=== PATIENT | female | born 1980 | race African-American/Black ===

== ENCOUNTER 2019-09-28 05:29 | Inpatient (IN) | payer OTHER, MEDICAID ==
[2019-09-26 13:58] LABS: BASOPHILS # (AUTO) 0.04 x10^3/uL (0-0.1); BASOPHILS % (AUTO) 1 % (0-1); EOSINOPHILS # (AUTO) 0.11 x10^3/uL (0-0.4); EOSINOPHILS % (AUTO) 2 % (1-7); LYMPHOCYTES # (AUTO) 1.64 x10^3/uL (1-3.4); LYMPHOCYTES % (AUTO) 22 % (22-44); MD NO; MEAN CORPUSCULAR HGB CONC 33.3 g/dL (32.4-35.8); MEAN CORPUSCULAR VOLUME 93.1 fL (80-100); MEAN PLATELET VOLUME 7.8 fL (7.4-10.4); MONOCYTES # (AUTO) 0.35 x10^3/uL (0.2-0.8); MONOCYTES % (AUTO) 5 % (2-9); NEUTROPHILS # (AUTO) 5.49 x10^3/uL (1.8-6.8); NEUTROPHILS % (AUTO) 72 % (42-75); PLATELET COUNT 367 x10^3/uL (130-400); RED BLOOD COUNT 4.45 x10^6/uL (3.82-5.3); RED CELL DISTRIBUTION WIDTH 13.3 % (9.6-15.2)
[2019-09-26 14:08] LABS: ALANINE AMINOTRANSFERASE 28 U/L (12-78); ALBUMIN 3.3 g/dL (3.4-5.0); ANION GAP 5 mmol/L (5-15); CALCIUM 9.1 mg/dL (8.5-10.1); CHLORIDE 103 mmol/L (98-107); CREATININE 0.92 mg/dL (0.55-1.02)
[2019-09-26 14:12] LABS: ALKALINE PHOSPHATASE 58 U/L (45-117); BILIRUBIN,TOTAL 0.2 mg/dL (0.2-1.0); TOTAL PROTEIN 8.2 g/dL (6.4-8.2)
[~2019-09-28] VITALS: Ht 162.6 cm; Wt 78.0 kg
[~2019-09-28 05:29] MED LIST: HYDR-3240 PO; LANS30CA PO
[2019-09-28] MEDS ORDERED: LACTATED RINGERS 1,000 ML IV SCH (06:01)
[2019-09-28 06:07] VITALS: BP 129/87
[2019-09-28 06:31] LABS: HCG UR SG 1.028 (1.003-1.030)
[2019-09-28] MEDS ORDERED: MIDAZOLAM 1 MG/ML, 2ML ONE (06:42)
[2019-09-28] MEDS ORDERED: FENTANYL PF 250 MCG/5ML ONE (06:42)
[2019-09-28] MEDS ORDERED: CHLORHEXIDINE 15 ML UDC MM STA (06:43)
[2019-09-28] MEDS ORDERED: KETOROLAC 30 MG/1 ML ONE (06:44)
[2019-09-28] MEDS ORDERED: PHENYLEPHRINE 10 MG/ML ONE (06:49)
[2019-09-28] MEDS ORDERED: DEXAMETHASONE 4 MG/ML, 1ML ONE (06:50)
[2019-09-28] MEDS ORDERED: GLYCOPYRROLATE 0.2MG/1ML, 5ML ONE (06:50)
[2019-09-28] MEDS ORDERED: CEFAZOLIN 1,000 MG ONE (06:50)
[2019-09-28] MEDS ORDERED: PROPOFOL 10 MG/ML, 20ML ONE (06:50)
[2019-09-28] MEDS ORDERED: NEOSTIGMINE 1 MG/ML, 10ML ONE (06:51)
[2019-09-28] MEDS ORDERED: ONDANSETRON 2MG/ML, 2ML ONE (06:51)
[2019-09-28] MEDS ORDERED: ROCURONIUM 10MG/ML,5ML ONE (06:51)
[2019-09-28] MEDS ORDERED: GABAPENTIN 300 MG CAPSULE PO ONE (07:00)
[2019-09-28] MEDS ORDERED: SCOPOLAMINE 1MG PATCH TD SCH (07:00)
[2019-09-28] MEDS ORDERED: ACETAMINOPHEN 500 MG TABLET PO ONE (07:00)
[2019-09-28] MEDS ORDERED: LABETALOL 5MG/ML, 20ML IV PRN (07:30)
[2019-09-28] MEDS ORDERED: MORPHINE SULFATE 4 MG/ML, 1ML IVPush PRN (07:30)
[2019-09-28] MEDS ORDERED: OXYcodone 5 MG/5 ML ORAL.SOL UDC PO PRN (07:30)
[2019-09-28] MEDS ORDERED: HALOPERIDOL 5 MG/ML IV PRN (07:30)
[2019-09-28] MEDS ORDERED: hydrALAzine 20 MG/ML, 1ML IV PRN (07:30)
[2019-09-28] MEDS ORDERED: PROMETHAZINE 25 MG/ML, 1ML IV PRN (07:30)
[2019-09-28] MEDS ORDERED: ACETAMINOPHEN 325 MG TABLET PO PRN ×2 (07:30→12:00)
[2019-09-28] MEDS ORDERED: MEPERIDINE/PF 25MG/ML,1ML IVPush PRN (07:30)
[2019-09-28] MEDS ORDERED: ROPIvacaine/PF 0.2%, 20 ML ONE ×2 (08:02)
[2019-09-28] MEDS ORDERED: FENTANYL PF 100 MCG/2ML ONE (09:30)
[2019-09-28] MEDS ORDERED: HYDROmorphone 1 MG/ML, 1ML INJ ONE (09:31)
[2019-09-28] MEDS: FENTANYL PF 100 MCG/2ML IV PRN ×2 (09:33→09:46)
[2019-09-28] MEDS: HYDROmorphone 2 MG/ML, 1ML IVPush PRN ×2 (09:44→09:53)
[2019-09-28] MEDS ORDERED: OXYcodone 5 MG/5 ML ORAL.SOL UDC ONE (09:51)
[2019-09-28] MEDS ORDERED: MEPERIDINE/PF 25MG/ML,1ML ONE (10:08)
[2019-09-28] MEDS ORDERED: morphine SULFATE 10 MG/ML, 1ML IV PRN (12:00)
[2019-09-28] MEDS ORDERED: ACETAMINOPHEN 650 MG SUPP PR PRN (12:00)
[2019-09-28] MEDS ORDERED: PANTOPRAZOLE 40MG TABLET PO PRN (12:00)
[2019-09-28 12:29] VITALS: BP 145/92
[2019-09-28] MEDS: LACTATED RINGERS 1,000 ML IV SCH ×2 (13:27→18:40)
[2019-09-28] MEDS: OXYcodone/APAP 5/325MG TABLET PO PRN ×3 (14:08→22:07)
[2019-09-28] MEDS ORDERED: KETOROLAC 30 MG/1 ML IV PRN (15:00)
[2019-09-28] MEDS: SIMETHICONE 80 MG CHEW TAB PO SCH ×2 (16:39→20:20)
[2019-09-28 20:00] VITALS: BP 105/67
[2019-09-28] MEDS: DOCUSATE 100 MG CAPSULE PO SCH (20:20)
[2019-09-28] MEDS: SODIUM CHLORIDE FLUSH 10ML SYR IVF SCH (20:23)
[2019-09-29 00:29] VITALS: BP 110/69
[2019-09-29] MEDS: LACTATED RINGERS 1,000 ML IV SCH ×4 (01:35→20:07)
[2019-09-29] MEDS: OXYcodone/APAP 5/325MG TABLET PO PRN ×4 (01:56→15:21)
[2019-09-29 04:56] VITALS: BP 112/71
[2019-09-29 06:40] VITALS: BP 151/96
[2019-09-29] MEDS: SODIUM CHLORIDE FLUSH 10ML SYR IVF SCH ×2 (08:11→20:04)
[2019-09-29] MEDS: SIMETHICONE 80 MG CHEW TAB PO SCH ×3 (08:11→23:12)
[2019-09-29] MEDS: DOCUSATE 100 MG CAPSULE PO SCH ×2 (08:11→20:03)
[2019-09-29 08:16] VITALS: BP 126/78
[2019-09-29 13:04] VITALS: BP 146/95
[2019-09-29] MEDS: KETOROLAC 30 MG/1 ML IV SCH ×3 (15:21→23:00)
[2019-09-29 19:11] VITALS: BP 122/81
[2019-09-30] MEDS: OXYcodone/APAP 5/325MG TABLET PO PRN (00:29)
[2019-09-30 00:31] VITALS: BP 143/94
[2019-09-30] MEDS: LACTATED RINGERS 1,000 ML IV SCH ×2 (04:00→10:40)
[2019-09-30] MEDS: KETOROLAC 30 MG/1 ML IV SCH ×2 (05:09→11:16)
[2019-09-30 06:24] VITALS: BP 148/83
[2019-09-30] MEDS: SIMETHICONE 80 MG CHEW TAB PO SCH (08:29)
[2019-09-30] MEDS: SODIUM CHLORIDE FLUSH 10ML SYR IVF SCH (08:29)
[2019-09-30] MEDS: DOCUSATE 100 MG CAPSULE PO SCH (08:29)
[2019-09-30 13:21] VITALS: BP 131/89
[2019-09-30] MEDS ORDERED: OXYC-302 PO (14:45)
[2019-09-30] MEDS ORDERED: IBUP-1222 PO (14:46)
[2019-09-30] MEDS ORDERED: IBUPROFEN 600 MG TABLET PO SCH (15:00)
== END 2019-09-30 15:12 | disposition home or self-care (01) | DRG 743 ==
LOC: ORIP 05:29 → 4NE 11:11
PROVIDERS: ADMIT Obstetrics & Gynecology Maternal & Fetal Medicine; ATTEND Obstetrics & Gynecology Maternal & Fetal Medicine
PROC: 0UB70ZZ Excision of Bilateral Fallopian Tubes, Open Approach (ICD-10-PCS; 2019-09-28)
PROC: 0UT90ZZ Resection of Uterus, Open Approach (ICD-10-PCS; principal; 2019-09-28 07:30)
DX: D25.9 Leiomyoma of uterus, unspecified (principal); Z98.51 Tubal ligation status
CPT/HCPCS: 36415; 80053; 81025; 84702; 85014; 85018; 85025; 86850; 86900; 88307; 93005; G0378; J0690; J1100; J1170; J1885; J2250; J2405; J2704; J2710; J2795; J3010; J2175; J2270; J2370; J7120

== ENCOUNTER 2019-10-02 02:16 | Emergency (ER) | payer OTHER, MEDICAID ==
[~2019-10-02] VITALS: Ht 162.6 cm; Wt 74.0 kg
[~2019-10-02 02:16] MED LIST changes: +IBUP-1222 PO; +OXYC-302 PO
--- NOTE | 2019-10-02 03:14 | NUR ---
SEEN BY EXAMINED BY LEOLA. WINSTON STRIP APPLIED. PATIENT DISCHARGED WITH INSTRUCTION. VERBALIZED UNDERSTANDING.
[2019-10-02 03:15] VITALS: BP 140/94
== END 2019-10-02 03:17 | disposition home or self-care (01) ==
LOC: ED 02:55
DX: T81.89XA Other complications of procedures, not elsewhere classified, initial encounter (principal); G89.18 Other acute postprocedural pain; Z90.710 Acquired absence of both cervix and uterus; Y92.89 Other specified places as the place of occurrence of the external cause
CPT/HCPCS: 99281